=== PATIENT | female | born 2005 | race African-American/Black ===

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

== ENCOUNTER 2023-06-11 07:05 | Emergency (ER) | payer OTHER ==
[2023-06-11 07:11] VITALS: BP 107/74; PULSE 80; RESP 20; TEMP 97.6; BMI 21.9
[2023-06-11 07:28] LABS: EPI CELLS 21 /uL (0-25.1); HYALINE CASTS 2 /uL (0-3.1); URINE APPEARANCE CLOUDY; URINE BACTERIA >9,000 /uL (0-1359); URINE BILIRUBIN NEGATIVE (NEGATIVE); URINE COLOR YELLOW; URINE GLUCOSE (UA) NEGATIVE (NEGATIVE); URINE KETONE NEGATIVE (NEGATIVE); URINE LEUK ESTERASE 3+ (NEGATIVE); URINE NITRITE NEGATIVE (NEGATIVE); URINE PROTEIN 2+ (NEGATIVE); URINE RBC 319 /uL (0-23.9); URINE UROBILINOGEN 0.2 mg/dL (0.2-1.0); URINE WBC 2558 /uL (0-25.8)
[2023-06-11 07:47] LABS: HCG,QUALITATIVE URINE Negative
[2023-06-11] MEDS ORDERED: levoFLOXacin 750 MG TABLET PO SCH (10:00)
== END 2023-06-11 09:17 | disposition home or self-care (01) ==
LOC: JER 07:05
DX: R30.0 Dysuria (principal); R35.0 Frequency of micturition; N12 Tubulo-interstitial nephritis, not specified as acute or chronic; N39.0 Urinary tract infection, site not specified; R10.9 Unspecified abdominal pain
CPT/HCPCS: 81003; 84703; 87086; 87186; 99283-25

== ENCOUNTER 2023-09-28 00:25 | Emergency (ER) | payer OTHER ==
[2023-09-28 00:32] VITALS: BP 105/71; PULSE 73; RESP 18; TEMP 98.4; BMI 17.2
[2023-09-28] MEDS ORDERED: CEFTRIAXONE 1 GM in DEXTROSE 5%-WATER - 100 ML IVPB ONE (00:51)
[2023-09-28] MEDS ORDERED: KETOROLAC TROMETHAMINE 15 MG/ML VIAL IVPUSH ONE (00:51)
[2023-09-28] MEDS ORDERED: KETOROLAC TROMETHAMINE 15 MG/ML VIAL ONE (00:59)
[2023-09-28 01:02] LABS: BASO % 0.9 % (0-2.0); HEMATOCRIT 39.4 % (32.4-45.2); HEMOGLOBIN 13.3 GM/dL (10.7-15.3); LYMPH % 26.7 % (8-40); MCH 31.3 pg (25.7-33.7); MCHC 33.8 g/dl (32.0-36.0); MEAN CELL VOLUME 92.6 fl (80-96); MEAN PLT VOLUME 7.4 fl (7.5-11.1); MONO % 10.3 % (3.8-10.2); NEUT % 60.1 % (42.8-82.8); PLATELET COUNT 388 10^3/uL (134-434); RBC 4.26 M/mm3 (3.60-5.2); RDW 13.5 % (11.6-15.6); WHITE BLOOD COUNT 6.7 K/mm3 (4.0-10.0)
[2023-09-28] MEDS ORDERED: CEFTRIAXONE 1 GM/50 ML BAG ONE (01:02)
[2023-09-28 01:05] LABS: HCG,QUALITATIVE URINE Negative
[2023-09-28 01:08] LABS: EPI CELLS 14 /uL (0-25.1); HYALINE CASTS 5 /uL (0-3.1); URINE APPEARANCE CLEAR; URINE BACTERIA 3226 /uL (0-1359); URINE BILIRUBIN NEGATIVE (NEGATIVE); URINE COLOR YELLOW; URINE GLUCOSE (UA) NEGATIVE (NEGATIVE); URINE KETONE NEGATIVE (NEGATIVE); URINE LEUK ESTERASE 3+ (NEGATIVE); URINE NITRITE NEGATIVE (NEGATIVE); URINE PROTEIN NEGATIVE (NEGATIVE); URINE RBC 49 /uL (0-23.9); URINE UROBILINOGEN 0.2 mg/dL (0.2-1.0); URINE WBC 614 /uL (0-25.8)
[2023-09-28 01:33] LABS: POTASSIUM 4.4 mmol/L (3.5-5.1)
[2023-09-28 01:35] LABS: ALBUMIN 4.1 g/dl (3.4-5.0); BLOOD UREA NITROGEN 4.4 mg/dL (7-18)
[2023-09-28 01:38] LABS: CREATININE 0.7 mg/dL (0.55-1.3)
[2023-09-28 01:40] LABS: BILIRUBIN,TOTAL 0.4 mg/dL (0.2-1); TOT PROT 8.1 g/dl (6.4-8.2)
== END 2023-09-28 06:48 | disposition home or self-care (01) ==
LOC: JER 00:25
PROC: 3E03329 Introduction of Other Anti-infective into Peripheral Vein, Percutaneous Approach (ICD-10-PCS; principal; 2023-09-28)
PROC: 3E0333Z Introduction of Anti-inflammatory into Peripheral Vein, Percutaneous Approach (ICD-10-PCS; 2023-09-28)
DX: R10.30 Lower abdominal pain, unspecified (principal); N20.0 Calculus of kidney; E86.0 Dehydration; R11.2 Nausea with vomiting, unspecified; R35.0 Frequency of micturition
CPT/HCPCS: 36415; 74176-TC; 76775-TC; 80053; 81003; 84703; 85025; 99285-25

== ENCOUNTER 2023-12-02 14:45 | Emergency (ER) | payer OTHER ==
[2023-12-02 14:53] VITALS: BP 96/63; PULSE 95; RESP 20; TEMP 97.6; BMI 17.6
[2023-12-02] MEDS ORDERED: ONDANSETRON 4 MG/2 ML VIAL IVPUSH ONE (15:45)
[2023-12-02] MEDS ORDERED: SODIUM CHLORIDE 0.9% 500 ML INFUS.BAG IV ONE (15:45)
[2023-12-02] MEDS ORDERED: FAMOTIDINE 20 MG/50 ML IVPB 20 MG/50 ML MG IVPB ONE (15:46)
[2023-12-02] MEDS ORDERED: ONDANSETRON 4 MG/2 ML VIAL ONE (15:47)
[2023-12-02] MEDS ORDERED: FAMOTIDINE 10 MG/ML VIAL IVPB ONE (15:48)
[2023-12-02 16:27] LABS: BASO % 0.3 % (0-2.0); EOS % 0.1 % (0-4.5); HEMATOCRIT 40.3 % (32.4-45.2); HEMOGLOBIN 13.6 GM/dL (10.7-15.3); LYMPH % 7.5 % (8-40); MCH 31.6 pg (25.7-33.7); MCHC 33.7 g/dl (32.0-36.0); MEAN PLT VOLUME 7.5 fl (7.5-11.1); MONO % 2.8 % (3.8-10.2); NEUT % 89.3 % (42.8-82.8); PLATELET COUNT 424 10^3/uL (134-434); RBC 4.29 M/mm3 (3.60-5.2); RDW 13.2 % (11.6-15.6); WHITE BLOOD COUNT 6.9 K/mm3 (4.0-10.0)
[2023-12-02 16:44] LABS: POTASSIUM 4.5 mmol/L (3.5-5.1)
[2023-12-02 16:46] LABS: CALCIUM 9.7 mg/dL (8.5-10.1)
[2023-12-02 16:47] LABS: ALBUMIN 4.2 g/dl (3.4-5.0); BLOOD UREA NITROGEN 8.5 mg/dL (7-18)
[2023-12-02 16:50] LABS: CREATININE 0.6 mg/dL (0.55-1.3)
[2023-12-02 16:52] LABS: BILIRUBIN,TOTAL 0.5 mg/dL (0.2-1); TOT PROT 8.2 g/dl (6.4-8.2)
[2023-12-02 17:01] LABS: EPI CELLS >36 /uL (0-25.1); HYALINE CASTS 3 /uL (0-3.1); URINE APPEARANCE CLOUDY; URINE BACTERIA 745 /uL (0-1359); URINE BILIRUBIN NEGATIVE (NEGATIVE); URINE COLOR YELLOW; URINE GLUCOSE (UA) NEGATIVE (NEGATIVE); URINE KETONE NEGATIVE (NEGATIVE); URINE LEUK ESTERASE TRACE (NEGATIVE); URINE NITRITE NEGATIVE (NEGATIVE); URINE PROTEIN TRACE (NEGATIVE); URINE RBC 14 /uL (0-23.9); URINE UROBILINOGEN 0.2 mg/dL (0.2-1.0); URINE WBC 27 /uL (0-25.8)
== END 2023-12-02 17:19 | disposition home or self-care (01) ==
LOC: JER 14:45
PROC: 3E033GC Introduction of Other Therapeutic Substance into Peripheral Vein, Percutaneous Approach (ICD-10-PCS; principal; 2023-12-02)
PROC: 3E033GC Introduction of Other Therapeutic Substance into Peripheral Vein, Percutaneous Approach (ICD-10-PCS; 2023-12-02)
DX: R11.2 Nausea with vomiting, unspecified (principal); R19.7 Diarrhea, unspecified; R10.12 Left upper quadrant pain; R10.13 Epigastric pain
CPT/HCPCS: 36415; 80053; 81003; 83690; 85025; 87086; 87186; 99284-25

== ENCOUNTER 2024-09-30 12:06 | Emergency (ER) | payer SELFPAY ==
[2024-09-30 12:13] VITALS: BP 105/73; PULSE 90; RESP 18; TEMP 97.9; BMI 18.1
[2024-09-30] MEDS ORDERED: ONDANSETRON *ODT* 4 MG TABLET ONE (13:47)
[2024-09-30] MEDS: ONDANSETRON *ODT* 4 MG TABLET SL ONE (13:49)
[2024-09-30 15:53] LABS: EPI CELLS >36 /uL (0-25.1); HYALINE CASTS 1 /uL (0-3.1); PH,URINE 8.5 (5.0-8.0); URINE APPEARANCE TURBID; URINE BACTERIA 987 /uL (0-1359); URINE BILIRUBIN NEGATIVE (NEGATIVE); URINE COLOR YELLOW; URINE GLUCOSE (UA) NEGATIVE (NEGATIVE); URINE KETONE NEGATIVE (NEGATIVE); URINE LEUK ESTERASE TRACE (NEGATIVE); URINE NITRITE NEGATIVE (NEGATIVE); URINE PROTEIN 1+ (NEGATIVE); URINE RBC 18 /uL (0-23.9); URINE UROBILINOGEN 0.2 mg/dL (0.2-1.0); URINE WBC 39 /uL (0-25.8)
[2024-09-30 16:19] LABS: YEAST PRESENT (NEGATIVE)
== END 2024-09-30 15:51 | disposition home or self-care (01) ==
LOC: JER 12:06
DX: K29.00 Acute gastritis without bleeding (principal); R10.13 Epigastric pain; R11.2 Nausea with vomiting, unspecified
CPT/HCPCS: 81003; 84703; 87086; 99283-25; Q0162

== ENCOUNTER 2025-03-21 18:20 | Emergency (ER) | payer OTHER ==
[2025-03-21 18:30] VITALS: BP 106/62; PULSE 94; RESP 18; TEMP 97.4; BMI 20.2
[2025-03-21] MEDS ORDERED: ACETAMINOPHEN 325 MG TABLET (FP) ONE (19:38)
[2025-03-21] MEDS: ACETAMINOPHEN 325 MG TABLET (FP) PO ONE (19:39)
[2025-03-21 19:42] LABS: EPI CELLS 18 /uL (0-25.1); HYALINE CASTS 2 /uL (0-3.1); URINE APPEARANCE CLOUDY; URINE BACTERIA 920 /uL (0-1359); URINE BILIRUBIN NEGATIVE (NEGATIVE); URINE COLOR YELLOW; URINE GLUCOSE (UA) NEGATIVE (NEGATIVE); URINE KETONE NEGATIVE (NEGATIVE); URINE LEUK ESTERASE 1+ (NEGATIVE); URINE NITRITE NEGATIVE (NEGATIVE); URINE PROTEIN NEGATIVE (NEGATIVE); URINE UROBILINOGEN 0.2 mg/dL (0.2-1.0); URINE WBC 148 /uL (0-25.8)
[2025-03-21] MEDS ORDERED: CEPHALEXIN MONOHYDRATE 500 MG CAPSULE (UD) ONE (20:00)
[2025-03-21] MEDS: CEPHALEXIN MONOHYDRATE 500 MG CAPSULE (UD) PO ONE (20:05)
== END 2025-03-21 20:30 | disposition home or self-care (01) ==
LOC: JERFT 18:20
DX: O23.12 Infections of bladder in pregnancy, second trimester (principal); N30.00 Acute cystitis without hematuria; Z3A.25 25 weeks gestation of pregnancy
CPT/HCPCS: 81003; 87086; 99283-25